=== PATIENT | male | born 1980 | race Caucasian/White ===

== ENCOUNTER 2021-09-02 07:44 | Emergency (ER) | payer SELFPAY ==
[~2021-09-02] VITALS: Ht 182.9 cm; Wt 120.0 kg
[2021-09-02] MEDS ORDERED: FLEXERIL5 M1 PO (09:04)
[2021-09-02] MEDS ORDERED: IBUPROFEN600 MG PO (09:04)
[2021-09-02 09:07] VITALS: BP 120/70
== END 2021-09-02 09:18 | disposition home or self-care (01) | DRG 552 ==
LOC: ED 07:44
DX: M47.816 Spondylosis without myelopathy or radiculopathy, lumbar region (principal)